=== PATIENT | female | born 1990 | race African-American/Black ===

== ENCOUNTER 2020-06-17 05:53 | Inpatient (IN) ==
[2020-06-17] MEDS ORDERED: PIPERACILLIN/TAZOBACTAM 3,375 MG in SODIUM CHLORIDE 0.9% 100 ML IV STA (07:25)
[2020-06-17] MEDS ORDERED: SODIUM CHLORIDE 0.9% 1,000 ML IV STA ×2 (07:25→08:35)
[2020-06-17] MEDS ORDERED: HYDROmorphone 2 MG/1 ML VIAL IV STA (07:26)
[2020-06-17] MEDS ORDERED: ONDANSETRON 4 MG/2 ML VIAL IV STA (07:26)
[2020-06-17] MEDS ORDERED: SODIUM CHLORIDE 0.9% 100 ML IV ONE (07:49)
[2020-06-17] MEDS ORDERED: diphenhydrAMINE 50 MG/1 ML VIAL ONE (08:07)
[2020-06-17] MEDS ORDERED: methylPREDNISolone SOD SUC 125 MG/2 ML VIAL ONE (08:10)
[2020-06-17] MEDS ORDERED: EPINEPHrine 1 MG/10 ML SYRINGE ONE (08:10)
[2020-06-17 08:12] LABS: Basophils % 0.4 % (0.0-0.8); Eosinophils # 0.2 10*3/uL (0.0-0.87); Hematocrit 39.7 VOL% (35.7-47.0); Hemoglobin 12.9 GM/DL (12.0-16.0); Immature Granulocytes % 0.3 %; Immature Granulocytes Absolute 0.03 #; Lymphocytes # 1.7 10*3/uL (1.4-4.0); Lymphocytes % 18.7 % (21.3-54.2); Mean Corpuscular HGB Conc 32.5 GM/DL (32-36); Mean Corpuscular Volume 89.4 FL (87-102); Mean Platelet Volume 9.2 FL (9.6-12.0); Monocytes % 11.7 % (1.7-12.7); Neutrophils % 66.9 % (38.7-73.9); Platelet Count 322 T/CUMM (130-400); Red Blood Count 4.44 MC/CUMM (3.8-5.5); Red Cell Distribution Width 13.9 % (9.3-17.3); White Blood Count 9.3 T/CUMM (4-12)
[2020-06-17] MEDS ORDERED: NALOXONE 0.4 MG/ML VIAL ONE (08:12)
[2020-06-17] MEDS ORDERED: EPINEPHrine 1 MG/ML VIAL ONE (08:12)
[2020-06-17 08:22] LABS: Calcium 9.1 MG/DL (8.5-10.1); Osmolality,Calculated 273.7 MOS/KG (273-304)
[2020-06-17] MEDS ORDERED: DEXTROSE 50% 25 GM/50 ML VIAL IV PRN (10:03)
[2020-06-17] MEDS ORDERED: DOCUSATE SODIUM 100 MG CAPSULE PO PRN (10:03)
[2020-06-17] MEDS ORDERED: GLUCAGON 1 MG VIAL IM PRN (10:03)
[2020-06-17] MEDS ORDERED: ONDANSETRON 4 MG/2 ML VIAL IV PRN (10:03)
[2020-06-17] MEDS ORDERED: ZALEPLON 5 MG CAPSULE PO PRN (10:03)
[2020-06-17] MEDS ORDERED: diphenhydrAMINE 50 MG/1 ML VIAL IV ONE (10:14)
[2020-06-17] MEDS ORDERED: EPINEPHrine 1 MG/ML VIAL SUBCUT ONE (10:14)
[2020-06-17] MEDS ORDERED: methylPREDNISolone SOD SUC 125 MG/2 ML VIAL IV ONE (10:14)
[2020-06-17] MEDS ORDERED: NALOXONE 0.4 MG/ML VIAL IV ONE ×2 (10:15→10:19)
[2020-06-17] MEDS ORDERED: diphenhydrAMINE 50 MG/1 ML VIAL IV PRN (10:19)
[2020-06-17] MEDS: SODIUM CHLORIDE 0.45% 1,000 ML IV SCH ×2 (12:00→21:18)
[2020-06-17 12:40] LABS: Thyroid Stimulating Hormone 0.523 uIU/ml (0.358-3.74)
[2020-06-17] MEDS ORDERED: ROCURONIUM 50 MG/5 ML VIAL IV ONE (13:10)
[2020-06-17] MEDS ORDERED: propofoL 200 MG/20 ML VIAL IV ONE (13:10)
[2020-06-17] MEDS ORDERED: DEXAMETHASONE 4 MG/1 ML VIAL ONE (13:10)
[2020-06-17] MEDS ORDERED: SUCCINYLCHOLINE 200 MG/10 ML VIAL ONE (13:10)
[2020-06-17] MEDS ORDERED: ONDANSETRON 4 MG/2 ML VIAL ONE (13:10)
[2020-06-17] MEDS ORDERED: SEVOFLURANE 1 UNIT/15 MINUTE INH ONE (13:10)
[2020-06-17] MEDS ORDERED: fentaNYL 100 MCG/2 ML VIAL ONE (13:10)
[2020-06-17] MEDS ORDERED: LIDOCAINE 2% 5 ML VIAL ONE (13:10)
[2020-06-17] MEDS: methylPREDNISolone SOD SUC 125 MG/2 ML VIAL IV SCH ×2 (15:41→22:05)
[2020-06-17] MEDS: LEVOFLOXACIN INJ 750 MG in PREMIX 1 EACH IV SCH (15:41)
[2020-06-17] MEDS: VANCOMYCIN INJ 1,000 MG in SODIUM CHLORIDE 0.9% 250 ML IV SCH (16:59)
[2020-06-17] MEDS: ACETAMINOPHEN 325 MG TABLET PO PRN (18:41)
[2020-06-18] MEDS: VANCOMYCIN INJ 1,000 MG in SODIUM CHLORIDE 0.9% 250 ML IV SCH ×2 (01:24→12:49)
[2020-06-18] MEDS: SODIUM CHLORIDE 0.45% 1,000 ML IV SCH ×2 (05:14→12:49)
[2020-06-18] MEDS: methylPREDNISolone SOD SUC 125 MG/2 ML VIAL IV SCH (06:11)
[2020-06-18 06:44] LABS: Basophils % 0.1 % (0.0-0.8); Hematocrit 36.6 VOL% (35.7-47.0); Immature Granulocytes % 0.5 %; Immature Granulocytes Absolute 0.09 #; Lymphocytes # 1.5 10*3/uL (1.4-4.0); Lymphocytes % 8.9 % (21.3-54.2); Mean Corpuscular HGB Conc 32.8 GM/DL (32-36); Mean Platelet Volume 9.2 FL (9.6-12.0); Monocytes % 3.9 % (1.7-12.7); Neutrophils % 86.6 % (38.7-73.9); Platelet Count 314 T/CUMM (130-400); Red Blood Count 4.16 MC/CUMM (3.8-5.5); Red Cell Distribution Width 13.6 % (9.3-17.3); White Blood Count 17.3 T/CUMM (4-12)
[2020-06-18 07:02] LABS: Calcium 8.4 MG/DL (8.5-10.1); Osmolality,Calculated 276.5 MOS/KG (273-304)
[2020-06-18] MEDS: ACETAMINOPHEN 325 MG TABLET PO PRN (08:37)
[2020-06-18] MEDS ORDERED: PANTOPRAZOLE 40 MG TABLET PO SCH (09:00)
[2020-06-18 12:23] VITALS: BP 103/67
[2020-06-18] MEDS: LEVOFLOXACIN INJ 750 MG in PREMIX 1 EACH IV SCH (12:49)
== END 2020-06-18 13:15 | disposition home or self-care (01) | DRG 144 ==
LOC: N.ED 05:53 → N.EDINP 05:53 → N.3E 09:56
PROVIDERS: ADMIT Emergency Medicine; ATTEND Emergency Medicine

== ENCOUNTER 2022-07-24 09:50 | Observation (INO) ==
[2022-07-24] MEDS ORDERED: methylPREDNISolone SOD SUC 125 MG/2 ML VIAL IV STA (11:21)
[2022-07-24 11:55] LABS: Basophils % 0.4 % (0.0-0.8); Eosinophils # 0.4 10*3/uL (0.0-0.87); Hematocrit 42.4 VOL% (35.7-47.0); Hemoglobin 13.8 GM/DL (12.0-16.0); Immature Granulocytes % 0.4 %; Immature Granulocytes Absolute 0.04 #; Mean Corpuscular HGB Conc 32.5 GM/DL (32-36); Mean Platelet Volume 8.5 FL (9.6-12.0); Monocytes # 1.2 10*3/uL (0.11-0.8); Monocytes % 10.8 % (1.7-12.7); Neutrophils % 65.4 % (38.7-73.9); Platelet Count 323 T/CUMM (130-400); Red Blood Count 4.56 MC/CUMM (3.8-5.5); Red Cell Distribution Width 12.3 % (9.3-17.3); White Blood Count 10.7 T/CUMM (4-12)
[2022-07-24 11:57] LABS: Bacteria,Urine Moderate /HPF (Few); Glucose,Urine (UA) Negative (Negative); Ketones,Urine 15 mg/dL (Negative); Mucus,Urine Many /LPF (Occasional); Nitrite,Urine Positive (Negative); Protein,Urine Negative (Negative); RBC,Urine 4 /HPF (0-4); Squamous Epithelial Cell,Urine Few /HPF (0-10); Urine Appearance Clear (Clear); Urine Color Yellow (Yellow); Urine Specific Gravity 1.025 (1.001-1.035); Urine pH 5.5 (4.5-8.0)
[2022-07-24 11:58] LABS: Bilirubin,Urine Negative (Negative); Blood, Urine Small mg/dL (Negative)
[2022-07-24 12:12] LABS: Albumin 3.1 G/DL (3.4-5.0); Bilirubin,Total 0.5 MG/DL (0.20-1.00); Osmolality,Calculated 272.7 MOS/KG (273-304); Potassium 3.8 MMOL/L (3.5-5.1); Total Protein 7.8 G/DL (6.4-8.2)
[2022-07-24] MEDS ORDERED: ACETAMINOPHEN 325 MG TABLET PO PRN (13:38)
[2022-07-24] MEDS ORDERED: ONDANSETRON 4 MG/2 ML VIAL IV PRN (13:38)
[2022-07-24] MEDS ORDERED: ZALEPLON 5 MG CAPSULE PO PRN (13:38)
[2022-07-24] MEDS ORDERED: PHENOL 1.4% THROAT SPRAY 177 ML BOTTLE PO PRN (13:41)
[2022-07-24] MEDS ORDERED: ENOXAPARIN 40 MG/0.4 ML SYRINGE SUBCUT SCH (14:00)
[2022-07-24] MEDS: CLINDAMYCIN INJ 600 MG/50 ML PREMIX IV SCH ×2 (15:13→22:58)
[2022-07-24] MEDS ORDERED: NICOTINE 7 MG/24 HR PATCH TRANSDERM PRN (15:17)
[2022-07-24] MEDS ORDERED: LEVOFLOXACIN INJ 500 MG/100 ML PREMIX IV SCH (15:30)
[2022-07-24] MEDS: SODIUM CHLORIDE 0.45% 1,000 ML IV SCH (18:45)
[2022-07-24 19:35] LABS: Barbiturates Screen,Urine Negative (Negative); Benzodiazepines Screen,Urine Negative (Negative); Cannabinoid Screen,Urine Positive (Negative); Opiate Screen,Urine Negative (Negative); Phencyclidine Screen,Urine Negative (Negative)
[2022-07-24] MEDS: NITROFURANTOIN MACRO/MONO 100 MG CAPSULE PO SCH (22:56)
[2022-07-25 05:26] LABS: Basophils % 0.2 % (0.0-0.8); Hematocrit 39.3 VOL% (35.7-47.0); Immature Granulocytes % 0.4 %; Immature Granulocytes Absolute 0.05 #; Lymphocytes # 1.4 10*3/uL (1.4-4.0); Lymphocytes % 12.2 % (21.3-54.2); Mean Corpuscular HGB Conc 33.1 GM/DL (32-36); Mean Corpuscular Volume 91.6 FL (87-102); Mean Platelet Volume 8.6 FL (9.6-12.0); Monocytes # 0.9 10*3/uL (0.11-0.8); Monocytes % 7.4 % (1.7-12.7); Neutrophils % 79.8 % (38.7-73.9); Platelet Count 326 T/CUMM (130-400); Red Blood Count 4.29 MC/CUMM (3.8-5.5); White Blood Count 11.6 T/CUMM (4-12)
[2022-07-25] MEDS: CLINDAMYCIN INJ 600 MG/50 ML PREMIX IV SCH ×2 (05:41→12:54)
[2022-07-25 05:46] LABS: Calcium 8.9 MG/DL (8.5-10.1); Osmolality,Calculated 279.4 MOS/KG (273-304); Potassium 4.2 MMOL/L (3.5-5.1)
[2022-07-25] MEDS: NITROFURANTOIN MACRO/MONO 100 MG CAPSULE PO SCH (08:50)
[2022-07-25] MEDS: SODIUM CHLORIDE 0.45% 1,000 ML IV SCH (12:55)
[2022-07-25 13:22] VITALS: BP 112/75
[2022-07-25] MEDS ORDERED: methylPREDNISolone SOD SUC 40 MG/1 ML VIAL IV ONE (15:06)
== END 2022-07-25 13:28 | disposition left against medical advice (07) ==
LOC: N.2E 09:50 → N.ED 09:50 → SUATTDRO 13:34 → N.2E 17:50
PROVIDERS: ADMIT Hospitalist; ATTEND Family Medicine